=== PATIENT | female | born 2000 | race Two or more races ===

== ENCOUNTER 2024-12-02 22:30 | Emergency (ER) | payer MEDICAID, OTHER ==
[~2024-12-02] VITALS: Ht 157.5 cm; Wt 98.0 kg
--- NOTE | 2024-12-02 23:40 | DVH ---
INDICATION: Right upper quadrant TECHNIQUE: Multiple real-time sonographic images were obtained of the right upper quadrant. COMPARISON: None FINDINGS: The liver demonstrates homogenous echotexture without focal mass lesions. The liver measure s 15.3 cm. There is no intrahepatic or extrahepatic ductal dilatation. The common duct measures 4 mm. There is cholelithiasis. The gallbladder wall measures 3 mm, upper limits of normal. The right kidney measures 8.7 cm. The right kidney is normal in contour, size, and shape. The echog enicity is normal. There is no hydronephrosis. Visualized portions of the pancreas are unremarkable. IMPRESSION: 1. Cholelithiasis without definitive sonographic evidence for acute cholecystitis.
[2024-12-03 00:06] LABS: Urine Protein, UAD 1+ (Negative); Urine WBC Clumps PRESENT /hpf (None Seen)
[2024-12-03] MEDS ORDERED: CIPR-173 PO (02:09)
[2024-12-03] MEDS ORDERED: HYDR-4902 PO (02:09)
[2024-12-03] MEDS ORDERED: ZOFR4T PO (02:09)
--- NOTE | 2024-12-03 02:11 | ED.PDOC ---
General HPI Comments This patient is a pleasant but severely morbidly obese 24-year-old female who arrives to the ED today for evaluation of continued abdominal pain concerns for the past three days. Patient states she has a history of gastritis and gallstones as well as chronic urinary tract infections. Patient states the pain has been relatively unrelenting. Patient denies any fever but states intermittent nausea. Vital signs were stable on arrival. Chief Complaint: Abdominal Pain Time Seen by MD: 22:39 Reviewed notes: Nurses Notes Allergies: Uncoded Allergies: PEROXIDE (Allergy, Unknown, 12/02/24) Information Source: Patient Mode of Arrival: Ambulatory Severity: Moderate Timing: Days Duration: Since onset Prehospital treatment: Pain Meds Onset: Spontaneous Symptoms: Dysuria History of: UTI Location: Suprapubic, Abdomen associated signs and symptoms: Abdominal Pain, Nausea Past Medical History PAST MEDICAL HISTORY: Denies Past Medical History (Other): History of gallstones, history of gastritis, history of recurrent UTIs. Surgical History: Denies all surgeries HEMATOLOGY TECHNOLOGIST History: No Pertinent HEMATOLOGY TECHNOLOGIST History Family History Family History: Reviewed,noncontributory to illness, No family hx of Cancer, No family hx of DM, No family hx of Heart mis, No family hx of HTN, No family hx ofKidney mis, No family hx of Liver mis, No family hx of Lung mis, No family hx of Stroke Social History Smoker: Non-Smoker Alcohol: Denies ETOH Use Drugs: Denies Drug Use Lives In: Home Constitutional: denies: chills, diaphoresis, fatigue, fever, malaise, sweats, weakness, others EENTM: denies: blurred vision, double vision, ear bleeding, ear discharge, ear drainage, ear pain, ear ringing, eye pain, eye redness, hearing loss, mouth pain, mouth swelling, nasal discharge, nose bleeding, nose congestion, nose pain, photophobia, tearing, throat pain, throat swelling, voice changes, others Respiratory: denies: cough, hemoptysis, orthopnea, SOB at rest, shortness of breath, SOB with excertion, stridor, wheezing, others Cardiovascular: denies: chest pain, dizzy spells, diaphoresis, Dyspnea on exertion, edema, irregular heart beat, left arm pain, lightheadedness, palpitations, PND, syncope, others Gastrointestinal: reports: abdominal pain, nausea; denies: abdomen distended, blood streaked bowels, constipated, diarrhea, dysphagia, difficulty swallowing, hematemesis, melena, poor appetite, poor fluid intake, rectal bleeding, rectal pain, vomiting, others Genitourinary: denies: abnormal vagina bleeding, burning, dyspareunia, dysuria, flank pain, frequency, hematuria, incontinence, pain, , vagina discharge, urgency, others Neurological: denies: dizziness, fainting, headache, left sided numbness, left sided weakness, numbness, paresthesia, pre-existing deficit, right sided numbness, right sided weakness, seizure, speech problems, tingling, tremors, weakness, others Musculoskeletal: denies: back pain, gout, joint pain, joint swelling, muscle pain, muscle stiffness, neck pain, others Integumetry: denies: bruises, change in color, change in hair/nails, dryness, laceration, lesions, lumps, rash, wounds, others Allergic/Immunocompromised: denies: Difficulty Healing, Frequent Infections, Hives, Itching, others Hematologic/Lymphatic: denies: anemia, blood clots, easy bleeding, easy bruising, swollen glands, others Endocrine: denies: excessive hunger, excessive sweating, excessive thirst, excessive urination, flushing, intolerance to cold, intolerance to heat, unexplained weight gain, unexplained weight loss, others Psychiatric: denies: anxiety, bipolar disorder, depression, hopeless, panic disorder, schizophrenia, sleepless, suicidal, others Physical Exam General Appearance: Moderate Distress ([id number] distress due to abdominal pain concerns. Patient declined any pain medication while at the facility.), Obese HEENT: Normal ENT Inspection, Pharynx Normal, TMs Normal Neck: Full Range of Motion, Non-Tender, Normal, Normal Inspection Respiratory: Chest Non-Tender, Lungs Clear, No Accessory Muscle Use, No Respiratory Distress, Normal Breath Sounds Cardiovascular: No Edema, No JVD, No Murmur, No Gallop, Normal Peripheral Pulses, Regular Rate/Rhythm Breast Exam: Deferred Gastrointestinal: Other (Diffuse epigastric and periumbilical tenderness to palpation. No signs of trauma. Difficult to assess due to body habitus.) Genitalia: Deferred Pelvic: Deferred Rectal: Deferred Extremities: No calf tenderness, Normal capillary refill, Normal inspection, Normal range of motion, Non-tender, No pedal edema Neurologic: Alert, No Motor Deficits, Normal Affect, Normal Mood, No Sensory Deficits Cerebellar Function: Normal Reflexes: Normal Skin: Dry, Normal Color, Warm Lymphatic: No Adenopathy Was a procedure done? Was a procedure done?: No Differential Diagnosis Kidney stone (Female): Other (Cholelithiasis, cholecystitis, chronic gastritis, UTI), N/A X-Ray, Labs, Meds, VS Vital Signs Date Time Temp Pulse Resp B/P (MAP) Pulse Ox O2 Delivery O2 Flow Rate FiO2 12/02/24 22:32 97.7 73 16 130/64 97 97.7 Lab Test 12/02/24 22:47 Range/Units Urine Color Red H Yellow Urine Clarity Ex.turbid Clear Urine pH 5.5 5.0-9.0 Urine Specific [place] 1.015 1.001-1.035 Urine Protein 1+ H Negative Urine Ketones Negative Negative Urine Blood 3+ H Negative /uL Urine Nitrite Negative Negative Urine Bilirubin Negative Negative Urine Urobilinogen Normal Negative mg/dL Urine Leukocyte Esterase 2+ Negative /uL Urine RBC 4822 0 - 4 /hpf Urine WBC Clumps Present None Seen /hpf Urine Microscopic WBC 744 H 0-5 /HPF Urine Squamous Epithelial Cells None seen <5 /hpf Urine Bacteria None seen None Seen /hpf Urine Glucose Normal Normal mg/dL X-Ray, Labs, Meds, VS Comment All studies performed the ED were evaluated by me personally. Urinalysis confirmed a significant urinary tract infection concern while CT of the abdomen aunt confirmed a cholelithiasis without a cholecystitis. Patient will be sent home on antibiotics and pain medication. Patient has been advised to follow up with the primary care provider for continued conversations and long-term management what appears to be multiple chronic conditions. Time of 1ST Reevaluation: 02:06 Reevaluation 1ST: Unchanged Consultation: PCP Patient Education/Counseling: Diagnosis, Treatment Family Education/Counseling: Diagnosis, Treatment SEPSIS Sepsis Screen Date sepsis recognized/suspect: Dec 02, 2024 Time Sepsis recognized/suspect: 2236 Recent Procedure: No On Antibiotic Therapy: No Respiratory Rate >20: No Heart Rate >90: No Temp<36 C (96.8 F) or >38.3 C: No SBP <90 or MAP <65 mmHG: No New Acute Mental Status Change: No Is the patient on CPAP, BIPAP,: No Physician Orders Abdomen Limited (12/02/24 22:47) Vital Signs Date Time Temp Pulse Resp B/P (MAP) Pulse Ox O2 Delivery O2 Flow Rate FiO2 12/02/24 22:32 97.7 73 16 130/64 97 97.7 Departure 1 Departure Time of Disposition: 02:07 Impression: Primary Impression: Urinary tract infection Additional Impression: Cholelithiasis Disposition: HOME / SELF CARE / HOMELESS Condition: Fair Additional Instructions: Advised patient utilize antibiotics as directed until completion. Patient should follow up with the primary care provider for discussions related to her chronic gastritis and recurrent urinary tract infection issues. e-Prescriptions Hydrocodone-Acetaminophen (Hydrocodone Bitartrate/AC 5-325 mg) 1 Tab Tab 1 TAB PO Q6HP PRN, #15 TAB Prov: ABDULKADIR ALLAN [facility] 12/03/24 Ondansetron Odt 4MG Tab (ZOFRAN PO) 4 Mg Tb 4 MG PO Q6HP PRN, #15 TAB ODT TAB-DISSOLVE IN MOUTH, THEN SWALLOW Prov: ABDULKADIR ALLAN [facility] 12/03/24 Ciprofloxacin Hcl (Cipro) 500 Mg Tab 1 TAB PO BID for 7 Days, #14 TAB Prov: ABDULKADIR ALLAN 12/03/24 Discharged With: Self, Friend Critical Care Note Critical Care Time?: No Stability Stability form required: No Heart Score Heart Score: Heart Score Response (Comments) Value History N/A 0 EKG N/A 0 Age N/A 0 Risk Factors N/A 0 Troponin N/A 0 Total 0 ABDULKADIR ALLAN PAC Dec 03, 2024 02:11
[2024-12-03] MEDS: cefTRIAXone SOD 1,000 MG VL IM ONE (03:11)
[2024-12-03] MEDS: CIPROFLOXACIN HCL 500 MG TAB PO ONE (03:11)
[2024-12-03 03:19] VITALS: BP 123/76; PULSE 56; RESP 17; TEMP 98; O2SAT 100
== END 2024-12-03 03:22 | disposition home or self-care (01) ==
LOC: ER 22:30
DX: N39.0 Urinary tract infection, site not specified (principal); K80.20 Calculus of gallbladder without cholecystitis without obstruction; Z88.8 Allergy status to other drugs, medicaments and biological substances
CPT/HCPCS: 76705; 81001; 96372; 99285; J0696